=== PATIENT | female | born 1935 | race African-American/Black ===

== ENCOUNTER 2018-05-25 14:25 | Emergency (ER) | payer MEDICARE ==
[~2018-05-25] VITALS: Ht 157.5 cm; Wt 52.0 kg
[2018-05-25] MEDS ORDERED: KETOROLAC 60MG/2ML VIAL IM ONE (19:30)
[2018-05-25] MEDS ORDERED: KETOROLAC 30MG/ML VIAL IV ONE (21:00)
[2018-05-25 21:03] VITALS: BP 170/92
== END 2018-05-25 21:15 | disposition home or self-care (01) ==
LOC: ER 15:39
DX: M54.30 Sciatica, unspecified side (principal); I10 Essential (primary) hypertension
CPT/HCPCS: 96374; 99283; J1885